=== PATIENT | female | born 1955 | race American Indian/Alaskan Native ===

== ENCOUNTER 2019-03-20 10:03 | Emergency (ER) | payer OTHER ==
[2019-03-20 10:50] LABS: Bilirubin,Urine NEG (Negative); Blood,Urine SM (Negative); Color,Urine Yellow (Yellow); Mucus,Urine FEW /HPF; Urobilinogen,Urine < 2.0 mg/dL (<2.0)
[2019-03-20 11:46] LABS: Basophils % (Auto) 0.4 % (0.0-1.8); Eosinophils % (Auto) 0.4 % (0.0-4.3); Hematocrit 43.1 % (30.3-42.9); Hemoglobin 15.2 gm/dl (10.1-14.3); Lymphocytes % (Auto) 24.2 % (13.4-35.0); Mean Corpuscular HGB Conc 35 % (30-34); Mean Corpuscular Volume 95 fl (79-97); Monocytes # (Auto) 0.3 K/mm3 (0.0-0.8); Monocytes % (Auto) 7.5 % (0.0-7.3); Platelet Count 198 K/mm3 (140-440); Red Blood Count 4.55 M/mm3 (3.65-5.03); Red Cell Distribution Width 11.9 % (13.2-15.2)
[2019-03-20 12:13] LABS: Alanine Aminotransferase 15 units/L (7-56); BUN/Creatinine Ratio 21; Blood Urea Nitrogen 17 mg/dL (7-17); Calcium 9.7 mg/dL (8.4-10.2); Hemolysis Index 40
[2019-03-20] MEDS ORDERED: MORPHINE 4 MG/1 ML INJ IV ONE ×2 (15:31→20:03)
[2019-03-20] MEDS ORDERED: ONDANSETRON 4 MG/2 ML INJ IV ONE (15:31)
--- NOTE | 2019-03-20 15:53 | Emergency Department Report ---
HPI - General Chief Complaint: Abdominal Pain Time Seen by Provider: 03/20/19 15:22 - HPI HPI: 63-year-old -[place] female presents to the emergency department with a three-week history of some abdominal pain that goes from her epigastrium and rad iates around to the right side of the abdomen, right flank and towards the right back. It is associated with some nausea and vomiting. Patient has tried some ibuprofen for her symptoms without any relief. No recent travel or sick contacts at home. She has a past medical history of duo-[id number] diabetes. Her primary care physician is Dr. Ramos. ED Past Medical Hx - Past Medical History Previous Medical History?: Yes Hx Diabetes: Yes - Surgical History Past Surgical History?: No - Social History Smoking Status: Never Smoker Substance Use Type: None - Medications Home Medications: Home Medications Medication Instructions Recorded Confirmed Last Taken Type Docusate Sodium [Colace] 100 mg PO BID PRN #20 capsule 03/20/19 Unknown Rx HYDROcodone/APAP 5-325 [Fork 1 each PO Q6HR PRN #10 tablet 03/20/19 Unknown Rx 5/325] Ondansetron [Zofran Odt] 4 mg PO Q8HR PRN #15 tab.rapdis 03/20/19 Unknown Rx ED Review of Systems ROS: Stated complaint: ABD PAIN Other details as noted in HPI Comment: All other systems reviewed and negative Constitutional: denies: chills, fever Eyes: denies: eye pain, vision change ENT: denies: ear pain, throat pain Respiratory: denies: cough, shortness of breath Cardiovascular: denies: chest pain, palpitations Gastrointestinal: abdominal pain, nausea, vomiting Genitourinary: denies: dysuria, discharge Musculoskeletal: back pain. denies: arthralgia Skin: denies: rash, lesions Neurological: denies: headache, weakness Physical Exam - Physical Exam Vital Signs: Vital Signs 03/20/19 03/20/19 03/20/19 10:17 15:31 15:32 Temperature 99 F 97.7 F Pulse Rate 99 H 89 Respiratory 16 20 20 Rate Blood Pressure 128/63 147/67 [Left] O2 Sat by Pulse 99 99 Oximetry 03/20/19 15:50 Temperature Pulse Rate Respiratory 20 Rate Blood Pressure [Left] O2 Sat by Pulse Oximetry Physical Exam: GENERAL: The patient is well-developed well-nourished. HEENT: Normocephalic. Atraumatic. Patient has moist mucous membranes. EYES: Extraocular motions are intact. NECK: Supple. Trachea is midline. CHEST/LUNGS: Clear to auscultation. There is no respiratory distress noted. HEART/CARDIOVASCULAR: Regular. There is no tachycardia. There is no murmur. ABDOMEN: Abdomen is soft. There is tenderness to palpation to the epigastrium, right upper and middle abdomen and right flank. No guarding. Patient has normal bowel sounds. There is no abdominal distention. SKIN:Skin is warm and dry. . NEURO: The patient is awake, alert, and oriented. The patient is cooperative. The patient has no focal neurologic deficits. Normal speech. MUSCULOSKELETAL: There is no tenderness or deformity. There is no evidence of acute injury. ED Course Vital Signs 03/20/19 03/20/19 03/20/19 10:17 15:31 15:32 Temperature 99 F 97.7 F Pulse Rate 99 H 89 Respiratory 16 20 20 Rate Blood Pressure 128/63 147/67 [Left] O2 Sat by Pulse 99 99 Oximetry 03/20/19 15:50 Temperature Pulse Rate Respiratory 20 Rate Blood Pressure [Left] O2 Sat by Pulse Oximetry ED Medical Decision Making - Lab Data Result diagrams: 03/20/19 11:01 03/20/19 11:01 - EKG Data -: EKG Interpreted by Nd EKG shows normal: sinus rhythm, axis, intervals, QRS complexes, ST-T waves Rate: normal - EKG Data When compared to previous EKG there are: previous EKG unavailable - Radiology Data Radiology results: report reviewed CTA ABDOMEN AND PELVIS WITH IV CONTRAST INDICATION: Abd pain. Epigastric to Right flank/back x 3 weeks. TECHNIQUE: Axial CT images were obtained through the abdomen and pelvis before and after after injection of 100 cc Omnipaque 350 IV contrast. 3 plane MIP reconstructions were produced. All CT scans at this location are performed using CT dose reduction for ALARA by means of automated exposure control. COMPARISON: None available. FINDINGS: Aorta: No acute abnormality. Renal arteries: No acute abnormality. Celiac artery: No acute abnormality. Superior mesenteric artery: No acute abnormality. Inferior mesenteric artery: No acute abnormality. Right iliac arteries: No acute abnormality. Left iliac arteries: No acute abnormality. CT abdomen: Small hiatal hernia is present. Multiple small gallstones are present without CT evidence for cholecystitis. Moderate decreased attenuation is seen throughout liver characteristic for steatosis. Visualized lung bases are clear. The pancreas, spleen, adrenals and kidneys appear within normal limits for arterial phase technique. CT PELVIS: Fat-containing umbilical hernia and rectus muscle diastases is present. A moderate amount of stool is seen throughout the colon characteristic for constipation. Small bowel feces are seen within the distal small bowel characteristic for slow small bowel transit time. The appendix is normal. No free fluid or adenopathy is seen. Skeletal Structures: No acute osseous abnormality. IMPRESSION: 1. No CTA evidence for mesenteric ischemia. 2. Cholelithiasis, small hiatal hernia and moderate constipation 3. Hepatic steatosis. 4. Fat-containing umbilical hernia - Medical Decision Making This patient presents to the emergency department with right-sided abdominal p ain with some radiation around to the flank and back, nausea and vomiting, that has been going on for the past few weeks. Labs have been mostly unremarkable. Mild hyperglycemia. A CT angiography of the abdomen and pelvis was completed that came back showing no evidence for mesenteric ischemia but did show cholelithiasis without cholecystitis, small hiatal hernia, and moderate constipation. The patient was given some pain medication and antiemetics with some improvement. We discussed cholelithiasis and the hiatal hernia. The patient will be given a referral for general surgery to establish care for possible outpatient cholecystectomy. She was given Colace for the increased stool volume. She will return to the ER with any worsening of her symptoms or any acute distress. Vital signs stable throughout her ED course. - Differential Diagnosis cholelithiasis, cholecystitis, pancreatitis, gastritis, nephrolithiasis Critical Care Time: No Critical care attestation.: If time is entered above; I have spent that time in minutes in the direct care of this critically ill patient, excluding procedure time. ED Disposition Clinical Impression: Hiatal hernia, Increased stool volume Abdominal pain Qualifiers: Abdominal location: unspecified location Qualified Code(s): R10.9 - Unspecified abdominal pain Cholelithiasis Qualifiers: Cholelithiasis location: gallbladder Cholecystitis presence: without cholecystitis Biliary obstruction: without biliary obstruction Qualified Code( s): K80.20 - Calculus of gallbladder without cholecystitis without obstruction Disposition: - TO HOME OR SELFCARE Is pt being admited?: No Condition: Stable Instructions: Hiatal Hernia (ED), Constipation (ED), Biliary Colic (ED), Cholelithiasis (ED), Abdominal Pain (ED) Additional Instructions: Please follow up with a primary care physician in the next few days. I am giving you a referral for a general surgeon, Dr. Gambino, to follow up regarding your gallstones. Return to the emergency Department with any worsening of your symptoms or any acute distress. You have been prescribed a pain medication that can be sedating. Therefore, this medication cannot be taken prior to driving, working, being responsible for children, and cannot be mixed with alcohol of any quantity. Prescriptions: Docusate Sodium [Colace] 100 mg PO BID PRN #20 capsule PRN Reason: Constipation HYDROcodone/APAP 5-325 [Fork 5/325] 1 each PO Q6HR PRN #10 tablet PRN Reason: Pain Ondansetron [Zofran Odt] 4 mg PO Q8HR PRN #15 tab.rapdis PRN Reason: Nausea Referrals: BALA GAMBINO MD [Staff Physician] - 2-3 Days Time of Disposition: 19:17
--- NOTE | 2019-03-20 17:46 | Cat Scan Report ---
CTA ABDOMEN AND PELVIS WITH IV CONTRAST INDICATION: Abd pain. Epigastric to Right flank/back x 3 weeks. TECHNIQUE: Axial CT images were obtained through the abdomen and pelvis before and after after injection of 100 cc Omnipaque 350 IV contrast. 3 plane MIP reconstructions were produced. All CT scans at this [facility] are performed using CT dose reduction for ALARA by means of automated exposure control. COMPARISON: None available. FINDINGS: Aorta: No acute abnormality. Renal arteries: No acute abnormality. Celiac artery: No acute abnormality. Superior mesenteric artery: No acute abnormality. Inferior mesenteric artery: No acute abnormality. Right iliac arteries: No acute abnormality. Left iliac arteries: No acute abnormality. CT abdomen: Small hiatal hernia is present. Multiple small gallstones are present without CT evidence for cholecystitis. Moderate decreased attenuation is seen throughout liver characteristic for steato sis. Visualized lung bases are clear. The pancreas, spleen, adrenals and kidneys appear within normal limits for arterial phase technique. CT PELVIS: Fat-containing umbilical hernia and rectus muscle diastases is present. A moderate amount of stool is seen throughout the colon characteristic for constipation. Small bowel feces are seen wit hin the distal small bowel characteristic for slow small bowel transit time. The appendix is normal. No free fluid or adenopathy is seen. Skeletal Structures: No acute osseous abnormality. IMPRESSION: 1. No CTA evidence for mesenteric ischemia. 2. Cholelithiasis, small hiatal hernia and moderate constipation 3. Hepatic steatosis. 4. Fat-containing umbilical hernia Signer Name: Keyon Sheridan MD Signed: 03/20/2019 5:41 PM Workstation Name: [id number]
[2019-03-20 20:02] VITALS: BP 131/68
[2019-03-20] MEDS ORDERED: MORPHINE 2 MG/1 ML INJ ONE (20:05)
== END 2019-03-20 20:17 | disposition home or self-care (01) ==
LOC: ED 10:03
DX: K44.9 Diaphragmatic hernia without obstruction or gangrene (principal); K80.20 Calculus of gallbladder without cholecystitis without obstruction; E11.9 Type 2 diabetes mellitus without complications; Z79.899 Other long term (current) drug therapy
CPT/HCPCS: 36415; 74174; 80053; 81001; 84484; 85025; 87086; 93005; 93010; 96374; 96375; 96376; 99284; J2270; J2405; Q9967